=== PATIENT | female | born 1955 | race Caucasian/White ===

== ENCOUNTER 2016-12-15 18:58 | Emergency (ER) | payer OTHER ==
[~2016-12-15] VITALS: Ht 172.7 cm; Wt 159.8 kg
[~2016-12-15 18:58] MED LIST: FURO20TA PO; [UNRECOGNIZED DRUG - CODE] PO
[2016-12-15 19:04] VITALS: BP 160/89; PULSE 85; RESP 16; TEMP 98.3; O2SAT 97
--- NOTE | 2016-12-15 19:21 | PD ---
HPI Chief Complaint: Pain: Acute or Chronic Time Seen by Provider: 19:16 Travel History International Travel<30 days: No Contact w/Intl Traveler<30days: No Traveled to known affect area: No History of Present Illness HPI 61-year-old female with a history of hypertension presents to the emergency department for evaluation left knee pain for 5 days. Patient states that while in the shower 5 days ago she bent down into the side and felt a pop in her left knee. States she's had pain in her left knee since this occurred. Pain is aggravated with walking and weightbearing as well as full extension of the left knee. Pain is a 4 on a scale of 1-10 when sitting still at an 8 on a scale of 1 -10 when walking. Denies any prior injury or trauma to this knee. Admits that she has a history of osteoarthritis in the left knee. Denies any fever, chills , nausea, vomiting, numbness or tingling, weakness. She has been taking ibuprofen and Aleve with minimal improvement of symptoms. No other complaints. PFSH Past Medical History Cancer: No Cardiovascular Problems: No Diabetes: No Endocrine: No Genitourinary: No Hepatitis: No Hiatal Hernia: No Immune Disorder: No Musculoskeletal: Yes (NECK PAIN, ARTHRITIS) Neurologic: No Psychiatric: No Reproductive: No Respiratory: Yes (ASTHMA) Thyroid Disease: No ?: Not Past Surgical History Abdominal Surgery: Yes (CHOLECYSTECTOMY) AICD: No Gynecologic Surgery: Yes (D & C'S) Joint Replacement: No Oral Surgery: Yes (TONSILECTOMY) Pacemaker: No Social History Tobacco Use: No Allergies-Medications (Allergen,Severity, Reaction): Coded Allergies: No Known Allergies (Unverified , 12/15/16) Reported Meds & Prescriptions Reported Meds & Active Scripts Active Tarka (Trandolapril-Verapamil) 4-240 Mg Tab 1 Tab PO DAILY Furosemide 20 Mg Tab 20 Mg PO DAILY Review of Systems Except as stated in HPI: all other systems reviewed are Neg Physical Exam Narrative GENERAL: Morbidly obese pleasant female patient in no acute distress who is nontoxic appearing. SKIN: Warm and dry. HEAD: Normocephalic and atraumatic. EYES: No injection, drainage, or hyphema noted. PERRLA. EOMI. ENT: No nasal drainage noted. Oropharynx is clear. NECK: Supple and the trachea is midline. CARDIOVASCULAR: Regular rate and rhythm. RESPIRATORY: Breath sounds are equal bilaterally with no accessory muscle use, wheezing, rhonchi, or crackles. MUSCULOSKELETAL: Mild tenderness to palpation of lower anterior left knee, full range of motion of left knee however does elicit pain. The joint is stable. No obvious deformities, swelling, cyanosis, or ecchymosis is present throughout the upper and lower extremities. Patient has full range of motion without any signs of neurovascular compromise. NEUROLOGICAL: Awake, alert, and oriented. Normal speech and gait. Cranial nerves are grossly intact. Data Data Last Documented VS Vital Signs Date Time Temp Pulse Resp B/P Pulse Ox O2 Delivery O2 Flow Rate FiO2 12/15/16 19:04 98.3 85 16 160/89 97 Orders Knee, Complete (4vws) (12/15/16 19:16) Splint Or Brace Apply/Monitor (12/15/16 20:09) [facility] Medical Decision Making Medical Screen Exam Complete: Yes Emergency Medical Condition: Yes Differential Diagnosis Osteoarthritis versus sprain versus meniscus tear versus fracture unlikely Narrative Course 61-year-old female presents to the emergency department for evaluation of left knee injury that occurred 5 days ago. Patient is afebrile, vital signs are stable. Left lower extremity is neurovascularly intact. X-ray imaging of the left knee has been ordered and is pending. X-ray imaging of the left knee shows advanced osteoarthritis, no acute abnormalities. The patient will be given a prescription for tramadol. Her left knee is placed in an Jarod wrap for comfort. She is advised follow-up with her PCP or and orthopedist if her symptoms persist. Patient verbalizes understanding and agreement with treatment plan. Diagnosis Primary Impression: Left knee pain Qualified Code: M25.562 - Acute pain of left knee Additional Impression: Osteoarthritis Qualified Code: M17.12 - Osteoarthritis of left knee, unspecified osteoarthritis type Referrals: Primary Care Physician Patient Instructions: General Instructions, Knee Pain (ED), Osteoarthritis (ED) Additional Instructions: Jarod wrap. Elevate left knee. Apply ice for 20 minutes on, 20 minutes off. Take medication as prescribed with food and a full glass of water. Do not take Tramadol with alcohol or while driving. Follow-up with your Primary Care Physician. Return to the ED for any acute worsening of symptoms. Med/Other Pt SpecificInfo: Prescription(s) given Disposition: 01 DISCHARGE HOME Condition: Stable Samina Jaime Dec 15, 2016 19:21
--- NOTE | 2016-12-15 20:06 | RADHPO ---
EXAM DATE/TIME: 12/15/2016 19:24 [facility] COMPARISON: No previous studies available for comparison. INDICATIONS : Left knee pain from unknown injury. MEDICAL HISTORY : None. SURGICAL HISTORY : None. ENCOUNTER: Initial ACUITY: 1 day PAIN SCORE: 7/10 LOCATION: Left knee FINDINGS: Multiple views of the knee show joint space narrowing with periarticular sclerotic change and osteoph yte production. No fracture or dislocation. No joint effusion. Soft tissues are unremarkable. CONCLUSION: Advanced osteoarthritis. Doyle Sánchez Jr., MD on December 15, 2016 at 20:04 Board Certified Radiologist. This report was verified electronically.
[2016-12-15] MEDS ORDERED: TRAM50TA PO (20:12)
[2017-01-03] MEDS ORDERED: FURO20TA PO (09:37)
[2017-02-07] MEDS ORDERED: [UNRECOGNIZED DRUG - CODE] PO (12:03)
== END 2016-12-15 20:20 | disposition home or self-care (01) ==
LOC: PHEFT 18:58
DX: M25.562 Pain in left knee (principal); M17.12 Unilateral primary osteoarthritis, left knee; I10 Essential (primary) hypertension; Z87.39 Personal history of other diseases of the musculoskeletal system and connective tissue; Z87.09 Personal history of other diseases of the respiratory system
CPT/HCPCS: 73564; 99283